=== PATIENT | female | born 1970 | race Native Hawaiian/Other Pacific Islander ===

== ENCOUNTER 2016-12-02 10:12 | Emergency (ER) | payer MEDICAID ==
[2016-12-02 10:23] VITALS: TEMP 97.9
--- NOTE | 2016-12-02 10:40 | C.PDOC ---
History Of Present Illness 46 y/o female presents to the ED with complains of skin tag under right breast for the past several years. Pt has appointment with continuous still operator next week for evaluation but patient didn't want to wait because it started bothering her, so came to ED. Denies fever, chills or any other complaints. Time Seen by Provider: 12/02/16 10:25 Chief Complaint (Nursing): Breast Problem History Per: Patient History/Exam Limitations: no limitations Onset/Duration Of Symptoms: Days Current Symptoms Are (Timing): Still Present Severity: Mild Recent travel outside of the [place]: No Past Medical History Reviewed: Historical Data, Nursing Documentation, Vital Signs Vital Signs: Last Vital Signs Temp 97.9 F 12/02/16 10:20 Pulse 79 12/02/16 11:02 Resp 18 12/02/16 11:02 BP 139/75 12/02/16 11:02 Pulse Ox 96 12/02/16 11:34 Family History: States: Unknown Family Hx - Social History Hx Alcohol Use: No Hx Substance Use: No - Immunization History Hx Tetanus Toxoid Vaccination: No Hx Influenza Vaccination: No Hx Pneumococcal Vaccination: No Review Of Systems Except As Marked, All Systems Reviewed And Found Negative. Constitutional: Negative for: Fever, Chills Skin: Positive for: Other (skin tag under right breast, no pain) Physical Exam - Physical Exam Appears: Non-toxic, No Acute Distress Skin: Warm, Dry, Other (7mm skin tag under right breast; no swelling, erythema or any other signs of infection) Head: Atraumatic, Normacephalic Extremity: Bilateral: Atraumatic Neurological/Psych: Oriented x3, Normal Speech ED Course And Treatment O2 Sat by Pulse Oximetry: 96 (room air) Pulse Ox Interpretation: Normal Progress Note: Gave patient list of dermatologists and surgeons for follow up. Disposition - Disposition Referrals: Nura Mendiola MD [Staff Provider] - Disposition: HOME/ ROUTINE Disposition Time: 10:38 Condition: STABLE Additional Instructions: Follow up with general surgery or Adolescent Medicine Specialist. Return to ED if feel worse. Forms: General Discharge Instructions - Clinical Impression Clinical Impression: Skin tag - PA / PATTERN GATER / Resident Statement /DO has reviewed & agrees with the documentation as recorded. - Scribe Statement The provider has reviewed the documentation as recorded by the Scribadrian Diallo All medical record entries made by the Scribe were at my direction and personally dictated by me. I have reviewed the chart and agree that the record accurately reflects my personal performance of the history, physical exam, medical decision making, and the department course for this patient. I have also personally directed, reviewed, and agree with the discharge instructions and disposition.
[2016-12-02 11:03] VITALS: BP 139/75; PULSE 79; RESP 18
[2016-12-02 11:34] VITALS: O2SAT 96
== END 2016-12-02 11:03 | disposition home or self-care (01) ==
LOC: C.ER 10:12
DX: L91.8 Other hypertrophic disorders of the skin (principal)